=== PATIENT | female | born 1950 | race Hispanic/Latino ===

== ENCOUNTER 2017-12-28 10:13 | Outpatient (CLI) | payer MEDICARE ==
--- NOTE | 2017-12-28 12:29 | RAD ---
CHEST TWO VIEWS: HISTORY: Preop. COMPARISON: None. FINDINGS: The cardiac silhouette and pulmonary vasculature are unremarkable. The mediastinum is midline. Ther e is no confluent air space consolidation, pneumothorax, or pleural fluid. IMPRESSION: No active cardiopulmonary abnormalities are demonstrated. POS: [facility]
--- NOTE | 2017-12-28 16:39 | EKG ---
Test Reason : Blood Pressure : / mmHG Vent. Rate : 065 BPM Atrial Rate : 065 BPM P-R Int : 152 ms QRS Dur : 080 ms QT Int : 390 ms P-R-T Axes : 023 057 051 degrees QTc Int : 405 ms Normal sinus rhythm Normal ECG No previous ECGs available Confirmed by TERI MARKHAM ([id number]) on 12/28/2017 4:39:04 PM Referred By: IERO Confirmed By:TERI MARKHAM
== END 2017-12-28 10:14 | disposition home or self-care (01) ==
LOC: LABBT 10:13
PROVIDERS: ATTEND Orthopaedic Surgery
DX: Z01.818 Encounter for other preprocedural examination (principal); M75.101 Unspecified rotator cuff tear or rupture of right shoulder, not specified as traumatic
CPT/HCPCS: 71046; 93005; 93010

== ENCOUNTER 2018-01-03 05:42 | Day surgery (SDC) | payer MEDICARE ==
[2017-12-28 10:27] VITALS: BMI 29.0
[2018-01-03] MEDS ORDERED: CEFAZOLIN/Water 2 GM/20 ML SYRINGE ONE (05:55)
[2018-01-03] MEDS ORDERED: Midazolam HCl 2 mg/2 ml Vial ONE (06:45)
[2018-01-03] MEDS ORDERED: Fentanyl 100 MCG/2 ML VIAL ONE ×2 (06:45→07:23)
[2018-01-03] MEDS ORDERED: Ropivacaine 0.2% HCl/PF 20 ML ONE (06:45)
[2018-01-03] MEDS ORDERED: traMADol HCl 50 MG TAB PO PRN ×2 (07:02)
[2018-01-03] MEDS ORDERED: Promethazine HCl 25 MG/ML VIAL IM PRN (07:02)
[2018-01-03] MEDS ORDERED: Zolpidem Tartrate 5 MG TAB PO PRN (07:02)
[2018-01-03] MEDS ORDERED: Ondansetron HCl/PF 4 MG/2 ML Vial IVP PRN (07:02)
[2018-01-03] MEDS ORDERED: Ropivacaine 0.2% 550 ML 550 ML NERVE BLCK SCH (07:02)
[2018-01-03] MEDS ORDERED: HYDROcodone/Acetaminophen 7.5/325 mg Tablet PO PRN ×2 (07:03→07:04)
[2018-01-03] MEDS ORDERED: Fentanyl 100 MCG/2 ML VIAL IV PRN (07:03)
[2018-01-03] MEDS ORDERED: Ketorolac Tromethamine 30 MG/ML VIAL IVP SCH (12:00)
--- NOTE | 2018-01-03 12:12 | OP ---
DATE OF SERVICE: 01/03/2018 PREOPERATIVE DIAGNOSES: Right shoulder impingement, massive cuff tear, biceps tendon tearing and ins tability. POSTOPERATIVE DIAGNOSES: Right shoulder impingement, massive cuff tear, biceps tendon tearing and in stability. PROCEDURE PERFORMED: 1. Right shoulder open subacromial decompression followed by right shoulder open rotator cuff repair with augmentation using human acellular dermal graft which was an AFLEX patch by [employer]. 2. Open biceps tenodesis. SURGEON: Torito Gill M.D. [employer] MECHANIC: Alvin Damon PA-C. BLOOD LOSS: 150 mL. ANESTHESIA: The patient had general anesthetic as well as a block. IMPLANTS: To the right shoulder, for the biceps tenodesis, we used a 7 x 23 [employer] Bio-Tenodes is screw. We used two triple loaded titanium corkscrew anchors and we used two [employer] 4.75 mm SwiveLocks for double row cuff repair. Again, we also placed an AFLEX decellularized dermal graft to augment the rotator cuff. All these were [employer] products. DISPOSITION: She did go to the recovery room in stable condition. INDICATIONS: A 67-year-old female who had what appeared to be a chronic issue with her shoulder with an acute exacerbation of pain after a fall and at this time, she wished to have surgery after she wa s found to have a massive cuff tear. DESCRIPTION OF PROCEDURE: After all appropriate consent forms were explained and signed, she was dia en back to operating room and at this time was given general anesthetic. She was placed in modified beach chair position with all bony prominences well-padded. At this time, the right shoulder and upp er extremity were then prepped and draped in the standard surgical fashion. Bony anatomic landmarks were then drawn out, and we made an incision over the anterolateral aspect of the arm through skin on ly. Bovie was used to coagulate any brisk venous bleeding. Once we made our portable skin flaps. W e then took full thickness deltoid and fascia to expose the anterior acromion. We did not take this up to the AC joint as we were not performing a distal clavicle resection. At this time, a Parminder w as placed underneath the acromion and anterior inferior acromioplasty was performed using the saw as well as the rasp. We then thoroughly irrigated and dried. At this time, we removed the bursal tissu e to try and gain a picture of what our cuff tear looked like. At this time, the rotator cuff was fo und to be in this injury pattern. Anteriorly, the subscapularis was found to be completely intact. The leading edge of the subscapularis had the biceps tendon which was underneath the transverse humer al ligament, but the entire biceps tendon transverse humeral ligament area going up into the glenohum eral joint, had a tremendous amount of synovitic tissue. This was coagulated and removed. The bicep s was cut out from the joint and tagged for later tenodesis. We then found our posterior edge of our rotator cuff and fraying the superior and inferior aspect of this, we were able to start moving this anteriorly. Immediately, again we freed up the rotator cuff along the articular surface as well as the bursal surface trying to free up this all the way anteriorly to the coracoid process. Once we we re able to get a hold of this with some traction sutures and mobilize the tendon, it appeared that we would still be left with a defect mostly in the rotator interval, but I also believe the portion of the supraspinatus as well. At this time, a decision was made to augment this repair with an acellula r dermal graft. Small dermal graft was brought, prepared on the table and once it was ready, we plac ed four #1 Ethibond sutures along leading top edge of subscapularis medially along the remnant of the rotator cuff tissue and posteriorly along the leading edge of our [place] rotator cuff. These were t hen placed through the graft. The sutures were tied down to give us a good anchor point medially. W e then proceeded to sew this in along the superior edge of the subscapularis as well as placing our t raction sutures through the graft itself to make our construct of [place] in graft 1. Once this was d one, we prepared our bony bed for reinsertion, taking down approximately 2-3 mm articular cartilage, making a small trough in this area and removing soft tissue from the remaining tuberosity for our rep air. Two triple loaded titanium anchors were placed right off the articular surface and all three of these sutures were passed through the combination of the [place] cuff as well as our acellular dermal graft in mattress fashion. Once all the sutures had been passed these were then tied down and separ ated for double row repair. We then went further down, laterally down the arm removing the soft tiss ue, using the punch followed by placing our 4.75 SwiveLocks. Once these [address], we a nice double row repair. Graft was laid down nicely. The arm was able to take through full range of motion without any impingement whatsoever. We were able to put the hand on the belly. Again, this w as all done with the arm staying at the side, so there was no tension whatsoever on our repair. At t his time, biceps tenodesis was performed by suturing with our FiberWire cutting off the intra-articul ar portion, placing our pin, reamed with a 7 mm reamer to a depth of 25 and placed a 7 x 23 [employer] ite Bio-Tenodesis screw in standard fashion. Once this was done, we thoroughly irrigated and dried i t some more. We then repaired our deltoid with multiple interrupted #1 Ethibond sutures through the acromion ran a Vicryl to repair our deltoid split and 2-0 Vicryl, and surgical maday were used for skin. Bulky sterile dressing was applied. The patient was awakened and taken to the recovery room i n stable condition. All counts were correct at the end of the case. She received preoperative IV an tibiotics.
[2018-01-03] MEDS ORDERED: Ropivacaine 0.5% HCl/PF (150 MG/30 ML VIAL) ONE (13:11)
[2018-01-03] MEDS ORDERED: Lidocaine 1% PF 5 ML VIAL ONE (15:13)
[2018-01-03] MEDS ORDERED: ePHEDrine/0.9% NaCl/PF SYRINGE 50 mg/10 ml ONE (15:13)
[2018-01-03] MEDS ORDERED: Ketorolac Tromethamine 30 MG/ML VIAL ONE (15:13)
[2018-01-03] MEDS ORDERED: PROPOFOL 200 MG/20 ML VIAL ONE (15:13)
== END 2018-01-03 13:25 | disposition home or self-care (01) ==
LOC: SDC 05:42
PROVIDERS: ATTEND Orthopaedic Surgery
PROC: 0LM10ZZ Reattachment of Right Shoulder Tendon, Open Approach (ICD-10-PCS; principal; 2018-01-03)
PROC: 0RNJ0ZZ Release Right Shoulder Joint, Open Approach (ICD-10-PCS; 2018-01-03)
PROC: 0RHJ04Z Insertion of Internal Fixation Device into Right Shoulder Joint, Open Approach (ICD-10-PCS; 2018-01-03)
DX: M75.101 Unspecified rotator cuff tear or rupture of right shoulder, not specified as traumatic (principal); M75.41 Impingement syndrome of right shoulder; S46.211A Strain of muscle, fascia and tendon of other parts of biceps, right arm, initial encounter; I10 Essential (primary) hypertension; Z79.82 Long term (current) use of aspirin; Z79.899 Other long term (current) drug therapy
CPT/HCPCS: 23420; 97139; A4306; C1713 ×3; J1885; J2001; J2250; J2704; J2795; J3010; J3370

== ENCOUNTER 2022-05-13 10:19 | Outpatient (CLI) | payer MEDICARE ==
[2022-05-13 11:26] LABS: #Basophils 0.1 10x3/uL (0.0-0.2); #Eosinphils 0.2 10x3/uL (0.0-0.5); #Monocytes 1.1 10x3/uL (0.0-1.1); %Basophils 0.9 % (0.0-2.0); %Eosinophils 1.6 % (0.0-6.0); %Lymphocytes 20.6 % (18.0-47.0); %Monocytes 11.5 % (0.0-10.0); %Neutrophils 65.1 % (40.0-75.0); Hemoglobin 13.4 g/dL (12.0-15.5); Mean Corpuscular HGB CONC 33.8 g/dL (32.0-36.0); Mean Corpuscular Hemoglobin 30.6 pg (27.0-33.0); Mean Corpuscular Volume 90.4 fl (81.6-98.3); Mean Platelet Volume 10.3 fl (7.4-10.4); Platelet Count 327 10x3/uL (150-450); RBC Distribution Width 12.3 % (11.5-14.5); Red Blood Cell (RBC) Count 4.38 10x6/uL (3.90-5.03); White Blood Cell (WBC) Count 9.2 10x3/uL (3.5-10.5)
[2022-05-13 11:39] LABS: Anion Gap 13 mmol/L (10-20); BUN (Urea Nitrogen) 13 mg/dL (9.8-20.1); Calc. Creatinine Clearance 0 mL/min (70-130); Calcium 9.7 mg/dL (7.8-10.44); Carbon Dioxide 25 mmol/L (23-31); Chloride 103 mmol/L (98-107); Estimated GFR 94; Glucose 142 mg/dL (83-110); Potassium 3.9 mmol/L (3.5-5.1); Sodium 137 mmol/L (136-145)
== END 2022-05-13 10:20 | disposition home or self-care (01) ==
LOC: LABBT 10:19
PROVIDERS: ATTEND Orthopaedic Surgery
DX: Z01.818 Encounter for other preprocedural examination (principal); M75.102 Unspecified rotator cuff tear or rupture of left shoulder, not specified as traumatic; Z20.822 Contact with and (suspected) exposure to COVID-19
CPT/HCPCS: 71046; 80048; 85025; 87811; 93005; 93010

== ENCOUNTER 2022-05-18 08:28 | Day surgery (SDC) | payer MEDICARE ==
[2022-05-16 14:18] VITALS: BMI 30.5
[2022-05-18] MEDS ORDERED: Vancomycin (BATCH) 1.5 GRAM/300 ML BAG ONE (09:43)
[2022-05-18] MEDS ORDERED: Midazolam HCl 2 mg/2 ml Vial ONE (10:31)
[2022-05-18] MEDS ORDERED: Fentanyl 100 MCG/2 ML VIAL ONE (10:32)
[2022-05-18] MEDS ORDERED: fentaNYL Citrate/PF 100 MCG/2 ML SYRINGE ONE (10:57)
[2022-05-18] MEDS ORDERED: Bupivacaine PF 0.5% 30 ML VIAL ONE (11:01)
[2022-05-18] MEDS ORDERED: CEFAZOLIN 2 GM VIAL ONE (11:04)
[2022-05-18] MEDS ORDERED: Sodium Chloride 0.9% 100 ML ONE (11:04)
[2022-05-18] MEDS ORDERED: Promethazine HCl 25 MG/ML VIAL IM PRN (13:45)
[2022-05-18] MEDS ORDERED: traMADol HCl 50 MG TAB PO PRN ×2 (13:45)
[2022-05-18] MEDS ORDERED: Zolpidem Tartrate 5 MG TAB PO PRN (13:45)
[2022-05-18] MEDS ORDERED: Ondansetron PF 4 MG/2 ML Vial IVP PRN (13:45)
[2022-05-18] MEDS ORDERED: Ropivacaine 0.2% 550 ML 550 ML NERVE BLCK SCH (13:45)
[2022-05-18] MEDS ORDERED: HYDROcodone/Acetaminophen 10/325 mg Tablet PO PRN ×2 (13:45)
== END 2022-05-18 15:32 | disposition home or self-care (01) ==
LOC: SDC 08:28
PROVIDERS: ATTEND Orthopaedic Surgery
PROC: 0LQ20ZZ Repair Left Shoulder Tendon, Open Approach (ICD-10-PCS; principal; 2022-05-18)
PROC: 0LS40ZZ Reposition Left Upper Arm Tendon, Open Approach (ICD-10-PCS; 2022-05-18)
PROC: 0RHK04Z Insertion of Internal Fixation Device into Left Shoulder Joint, Open Approach (ICD-10-PCS; 2022-05-18)
PROC: 3E0T3BZ Introduction of Anesthetic Agent into Peripheral Nerves and Plexi, Percutaneous Approach (ICD-10-PCS; 2022-05-18)
DX: S46.012A Strain of muscle(s) and tendon(s) of the rotator cuff of left shoulder, initial encounter (principal); S46.292A Other injury of muscle, fascia and tendon of other parts of biceps, left arm, initial encounter; M25.812 Other specified joint disorders, left shoulder; M25.312 Other instability, left shoulder; I10 Essential (primary) hypertension; Z79.82 Long term (current) use of aspirin; Z79.84 Long term (current) use of oral hypoglycemic drugs; Z79.899 Other long term (current) drug therapy; Z88.5 Allergy status to narcotic agent; W19.XXXA Unspecified fall, initial encounter
CPT/HCPCS: 23410; 23430; 64416; A4306; J3370; C1713; J0690; J2250; J2795; J3010; J3490

== ENCOUNTER 2022-05-19 12:36 | Day surgery (SDC) | payer MEDICARE ==
[2022-05-19] MEDS ORDERED: Bupivacaine HCl 0.5%/Epinephrine 1:200,000/PF 30 ml Vial ONE (12:45)
[2022-05-19] MEDS ORDERED: Fentanyl 100 MCG/2 ML VIAL ONE (13:29)
== END 2022-05-19 13:17 | disposition home or self-care (01) ==
LOC: SDC 12:36
PROVIDERS: ATTEND Anesthesiology
PROC: 3E0T3BZ Introduction of Anesthetic Agent into Peripheral Nerves and Plexi, Percutaneous Approach (ICD-10-PCS; principal; 2022-05-19)
DX: G89.18 Other acute postprocedural pain (principal); Z88.5 Allergy status to narcotic agent
CPT/HCPCS: J3010

== ENCOUNTER 2023-07-24 13:41 | Outpatient (CLI) | payer MEDICARE | END 2023-07-24 13:42 | disposition home or self-care (01) | LOC: BICMRI 13:41 | PROVIDERS: ATTEND Orthopaedic Surgery | DX: M50.11 Cervical disc disorder with radiculopathy, high cervical region (principal); M47.22 Other spondylosis with radiculopathy, cervical region; M48.02 Spinal stenosis, cervical region | CPT/HCPCS: 72141 ==

== ENCOUNTER 2023-08-07 09:34 | Outpatient (CLI) | payer MEDICARE | END 2023-08-07 09:35 | disposition home or self-care (01) | LOC: SCSMRI 09:34 | PROVIDERS: ATTEND Orthopaedic Surgery | DX: G54.2 Cervical root disorders, not elsewhere classified (principal); M47.812 Spondylosis without myelopathy or radiculopathy, cervical region | CPT/HCPCS: 72156; 82565 ==